=== PATIENT | female | born 1980 | race Caucasian/White ===

== ENCOUNTER 2016-11-10 17:13 | Emergency (ER) | payer MEDICAID ==
[~2016-11-10] VITALS: Ht 149.9 cm; Wt 65.0 kg
[2016-11-10 17:29] VITALS: BP 113/79
[2016-11-10 18:41] LABS: ASPARTATE AMINO TRANSFERASE 10 U/L (15-37); BLOOD UREA NITROGEN 8 mg/dL (7-18)
[2016-11-10] MEDS ORDERED: SODIUM CHLORIDE 0.9% 1,000ML IVBOLUS ONE (20:00)
[2016-11-10] MEDS ORDERED: MORPHINE SULFATE 4 MG/ML, 1ML IVPush PRN (20:00)
[2016-11-10] MEDS ORDERED: ONDANSETRON 2MG/ML, 2ML IVPush ONE (20:00)
[2016-11-10] MEDS ORDERED: MORPHINE SULFATE 4 MG/ML, 1ML ONE (20:01)
[2016-11-10] MEDS ORDERED: ONDANSETRON 2MG/ML, 2ML ONE (20:01)
== END 2016-11-10 22:00 | disposition home or self-care (01) ==
LOC: ED 21:52
DX: N30.90 Cystitis, unspecified without hematuria (principal); R10.12 Left upper quadrant pain; R10.32 Left lower quadrant pain
CPT/HCPCS: 36415; 74000; 74176; 80053; 81001; 83690; 84703; 85025; 87077; 87086; 87186; 96361; 96374; 96375; 99285; J2405; J7030